=== PATIENT | female | born 1995 | race Two or more races ===

== ENCOUNTER 2025-01-31 19:41 | Emergency (ER) | payer OTHER ==
[~2025-01-31] VITALS: Ht 165.1 cm; Wt 52.2 kg
[2025-01-31] MEDS ORDERED: KETOROLAC TROMETHAMINE 60 MG VIAL IM STA (20:54)
[2025-01-31] MEDS ORDERED: CEFTRIAXONE SODIUM 1,000 MG VIAL IM STA (20:54)
[2025-01-31] MEDS ORDERED: KETOROLAC TROMETHAMINE 60 MG VIAL IM ONE (20:58)
[2025-01-31] MEDS ORDERED: CEFTRIAXONE SODIUM 1,000 MG VIAL ONE (20:59)
== END 2025-01-31 21:54 | disposition home or self-care (01) ==
LOC: ER 19:42
DX: N39.0 Urinary tract infection, site not specified (principal)